=== PATIENT | female | born 1955 | race Caucasian/White ===

== ENCOUNTER → 2017-06-08 | Outpatient (CLI) | payer OTHER ==
--- NOTE | 2017-06-08 13:01 | REPMRS ---
Patient History The patient states she had a clinical breast exam in 06/07 Patient is postmenopausal and has history of melanoma age 59. No known family history of cancer. Digital Woman Screen Mammo: June 08, 2017 - Exam #: [id number] Bilateral CC and MLO view(s) were taken. Technologist: Cayla Flores, Technologist Prior study comparison: June 13, 2016, digital woman screen mammo performed at [facility]. June 11, 2015, digital woman screen mammo performed at [facility]. June 10, 2014, digital woman screen mammo performed at [facility]. FINDINGS: There are scattered fibroglandular densities. There has been no change in the appearance of the mammogram from the prior studies. There is a mild amount of scattered fibroglandular density which is fairly symmetric. There is no interval development of dominant mass, architectural distortion, or clustered microcalcification suggestive of malignancy. ASSESSMENT: BI-RADS/ACR category 1 mammogram. Negative. Recommendation Routine screening mammogram in 1 year (for women over age 40). This mammogram was interpreted with the aid of an FDA-approved computer-aided dectection system. Electronically Signed By: Sen Multani MD 06/08/17 7009
== END ==
LOC: M WHC 10:41
PROVIDERS: ATTEND Nurse Practitioner Women's Health
DX: Z12.31 Encounter for screening mammogram for malignant neoplasm of breast (principal)

== ENCOUNTER → 2017-06-08 | Outpatient (REF) | payer OTHER | LOC: M SFHCWAGY 10:57 | PROVIDERS: ATTEND Nurse Practitioner Women's Health | DX: Z12.4 Encounter for screening for malignant neoplasm of cervix (principal) ==

== ENCOUNTER → 2019-03-18 | Outpatient (CLI) | payer OTHER ==
--- NOTE | 2019-03-18 12:14 | REPMRS ---
Patient History The patient states she had a clinical breast exam in 02/2019. Patient is postmenopausal and has history of melanoma skin cancer at age 59. No known family history of cancer. No Hormone Replacement Therapy 3D TOMOSYNTHESIS WAS PERFORMED. Digital Woman Screen Mammo: March 18, 2019 - Exam #: [id number] Bilateral CC and MLO view(s) were taken. Technologist: Leidy Weathers, Technologist Prior study comparison: June 08, 2017, digital woman screen mammo performed at [facility]. June 13, 2016, digital woman screen mammo performed at [facility]. FINDINGS: The breast tissue is heterogeneously dense. This may lower the sensitivity of mammography. There has been no change in the appearance of the mammogram from the prior studies. There is a moderate amount of residual fibroglandular tissue which is fairly symmetric. There is no interval development of dominant mass, areas of architectural distortion, or clustered microcalcification typical of malignancy. Assessment: BI-RADS/ACR category 1 mammogram. Negative Mammogram. Recommendation Routine screening mammogram in 1 year (for women over age 40). This mammogram was interpreted with the aid of an FDA-approved computer-aided dectection system. Electronically Signed By: Jignesh Guzman MD 03/18/19 6783
== END ==
LOC: M WHC 10:49
PROVIDERS: ATTEND Nurse Practitioner Women's Health
DX: Z12.31 Encounter for screening mammogram for malignant neoplasm of breast (principal); Z78.0 Asymptomatic menopausal state

== ENCOUNTER → 2020-04-27 | Outpatient (REF) | payer BC | LOC: M SFHCWAGY 15:03 | PROVIDERS: ATTEND Nurse Practitioner Women's Health | DX: Z12.4 Encounter for screening for malignant neoplasm of cervix (principal); N95.2 Postmenopausal atrophic vaginitis | CPT/HCPCS: 87624; G0123 ==

== ENCOUNTER → 2020-04-27 | Outpatient (CLI) | payer BC ==
--- NOTE | 2020-04-27 13:02 | REPMRS ---
Patient History The patient states she had a clinical breast exam in April 2020. No known family history of cancer. No Hormone Replacement Therapy 3D TOMOSYNTHESIS WAS PERFORMED. [facility] lifetime risk for breast cancer is 6.6%. RUPALI Fuchs. Digital Woman Screen Mammo: April 27, 2020 - Exam #: [id number] Bilateral CC and MLO view(s) were taken. Technologist: Shirley Guerrero, Technologist Prior study comparison: March 18, 2019, bilateral digital woman screen mammo performed at [facility]. June 08, 2017, digital woman screen mammo performed at [facility]. FINDINGS: The breast tissue is heterogeneously dense. This may lower the sensitivity of mammography. There has been no change in the appearance of the mammogram from the prior studies. There is a moderate amount of residual fibroglandular tissue which is fairly symmetric. There is no interval development of dominant mass, areas of architectural distortion, or clustered microcalcification typical of malignancy. Assessment: BI-RADS/ACR category 1 mammogram. Negative Mammogram. Recommendation Routine screening mammogram in 1 year (for women over age 40). This mammogram was interpreted with the aid of an FDA-approved computer-aided dectection system. Electronically Signed By: Jignesh Guzman MD 04/27/20 2830
== END ==
LOC: M WHC 10:52
PROVIDERS: ATTEND Nurse Practitioner Women's Health
DX: Z12.31 Encounter for screening mammogram for malignant neoplasm of breast (principal)

== ENCOUNTER → 2020-08-10 | Outpatient (CLI) | payer BC ==
[~2020-08-10] MED LIST: E-Z-GAS II EFFERVESCENT PACKET (SODIUM BICARB./CITRIC ACID/SIMETHICONE) As Ordered ONE; E-Z-HD 98% w/w 340GM SUSP BTL As Ordered ONE; E-Z-PAQUE 96% w/w SUSP 176GM BTL As Ordered ONE
--- NOTE | 2020-08-10 17:24 | REP ---
INDICATION: GERD COMPARISON: None TECHNIQUE: This procedure was performed by Erma Dean [facility], under the direct supervision of Dr. Guzman. Images were reviewed with Dr. Guzman prior to dictation. Liquid barium and gas producing crystals were given in the erect position, as well as liquid barium in the prone oblique position in order to perform a double contrast upper GI examination. FINDINGS: The line rider PA chest x-ray shows a left hilar mass. A CT of the chest with IV contrast is recommended. The line rider film of the patient's abdomen demonstrates no organomegaly or pathological masses. The intestinal gas pattern is unremarkable. There are surgical clips in the right lower quadrant. The oral and pharyngeal stages of deglutition were unremarkable. And incidental finding of an anterior osteophyte of the C6/7 vertebral bodies, indenting the posterior aspect of the esophagus. Esophageal transport is prompt and efficient and there is no evidence of esophagitis, stricture, or mucosal ring. There is no evidence of a hiatal hernia. Gastroesophageal reflux was visualized to the level of the jeevan. The stomach messer are normally outlined. The rugal folds appear thickened within the body of the stomach, possibly due to gastritis.. There is no neoplasm, or ulcerative disease. The duodenal messer are normally outlined. The mucosal folds are smooth and regular. There is no duodenitis, peptic ulcer disease or neoplasm. The visualized portion of the proximal small bowel appears normal in course and caliber. IMPRESSION: 1. Incidental finding of a left hilar mass, CT of the chest with IV contrast is strongly recommended. 2. Gastroesophageal reflux to the level of the jeevan. 3. Thickened rugal folds within the body of the stomach, possibly due to gastritis. 0.4 minutes of fluoroscopy time was utilized for this procedure. Some fluoroscopic images are performed with last image hold technology. These images require no additional radiation. <Electronically signed by Jingesh Guzman > 08/10/20 9828
== END ==
LOC: M RAD 08:52
PROVIDERS: ATTEND Internal Medicine
DX: K21.00 Gastro-esophageal reflux disease with esophagitis, without bleeding (principal)

== ENCOUNTER → 2020-09-21 | Outpatient (CLI) | payer BC ==
--- NOTE | 2020-09-23 08:19 | REP ---
INDICATION: DIAGNOSING SOLITARY PULMONARY NODULE R91.1. COMPARISON: Comparison is made with CT study of the chest from September 10, 2020 done ago in our hospital. Comparison chest x-ray from upper GI series August 10, 2020.. TECHNIQUE: Forty-six minutes following the intravenous injection of a 8.50 mCi dose of F-18 FDG, three-dimensional PET scintigraphy is acquired from the skull base to the proximal thighs. Triplanar noncontrast CT scanning is acquired through the same anatomic range for attenuation correction, and image registration with scan parameters optimized to minimize radiation exposure to the patient. PET scintigraphy and CT datasets were fused and displayed on a workstation with multiplanar and projection display capability. FINDINGS: Incidental findings include cholelithiasis and a small air-containing right tracheal diverticulum at the thoracic inlet. This is a normal variant. The head and neck soft tissues are unremarkable. The recently identified large left hilar mass lesion is markedly hypermetabolic. Maximum standard uptake value within it is 18.97. Lesion measures up to 5.8 cm in greatest anteroposterior dimension. There is a contiguous somewhat linear pattern of increased uptake and soft tissue density extending into the perihilar region of the left upper lobe suggesting some endobronchial or peribronchial spread. There is certainly mass effect and attenuation of the upper lobe bronchus. There is hypermetabolic nodularity in the left upper lobe with multiple nodular opacities. Maximum standard uptake value in these ranges from 3.0 to 7.9. There is low-level non hypermetabolic parenchymal uptake in the lingular segment of the left upper lobe near the lung base and patchy areas of alveolar density and interstitial thickening elsewhere in the left upper lobe. This pattern raises the question of early lymphangitc spread. There is also very subtle nodular thickening of the major fissure on the left. These changes correlate with recent CT study. No pleural effusion is seen. No hypermetabolic pleural uptake is appreciated. In the abdomen and pelvis, normal hepatic, splenic, gastrointestinal FDG accumulation is seen. No evidence of adrenal mass or abnormal adrenal activity on scintigraphy. No abnormal hypermetabolic uptake in the abdomen or pelvis. IMPRESSION: The the large left hilar mass is markedly hypermetabolic and there are hypermetabolic left upper lobe nodules. There is suspicion of lymphangitic spread in the left upper lobe and some fine pleural nodularity along the major fissure on the left is seen on accompanying CT. Cholelithiasis. <Electronically signed by Sen Multani > 09/23/20 2729
== END ==
LOC: M PLARAD 12:17
PROVIDERS: ATTEND Internal Medicine
DX: R91.1 Solitary pulmonary nodule (principal)
CPT/HCPCS: 78815; A9552

== ENCOUNTER → 2020-09-22 | Outpatient (REF) | payer BC ==
[2020-09-22 17:49] LABS: PLATELET COUNT, AUTOMATED 403 10^3/uL (150-450)
[2020-09-22 18:07] LABS: INR 0.99; PROTHROMBIN TIME 13.3 SECONDS (12.5-14.3)
[2020-09-22 18:08] LABS: PARTIAL THROMBOPLASTIN TIME 31.1 SECONDS (24.2-38.5)
== END ==
LOC: M LAB REF 16:43
PROVIDERS: ATTEND Internal Medicine Pulmonary Disease
DX: R91.8 Other nonspecific abnormal finding of lung field (principal)

== ENCOUNTER → 2020-10-01 | Outpatient (CLI) | payer BC ==
[~2020-10-01] MED LIST changes: +BUPR150T5 PO; +CITA10TA5 PO; +DIAZ5TAB PO; -E-Z-GAS II EFFERVESCENT PACKET (SODIUM BICARB./CITRIC ACID/SIMETHICONE) As Ordered ONE; -E-Z-HD 98% w/w 340GM SUSP BTL As Ordered ONE; -E-Z-PAQUE 96% w/w SUSP 176GM BTL As Ordered ONE; +LEVO50TA5 PO; +OMEP-218 PO; +RABE1TAB PO
== END ==
LOC: M LABSMTC 13:36
PROVIDERS: ATTEND Anesthesiology
DX: Z01.812 Encounter for preprocedural laboratory examination (principal); Z20.828 Contact with and (suspected) exposure to other viral communicable diseases

== ENCOUNTER 2020-10-06 06:11 | Day surgery (SDC) | payer BC ==
[~2020-10-06] VITALS: Ht 172.7 cm; Wt 67.6 kg
[~2020-10-06 06:11] MED LIST changes: +LIDOCAINE 1% MDV 20ML VIAL SQ PRN
[2020-10-06] MEDS ORDERED: LIDOCAINE 4% INJ 5ML AMP INH ONE (07:00)
[2020-10-06] MEDS ORDERED: LR 1,000 ML IV ONE (07:00)
[2020-10-06] MEDS ORDERED: ALBUTEROL SULFATE 2.5 MG/0.5 ML INH NEB SOLN INH ONE (07:00)
[2020-10-06] MEDS ORDERED: ONDANSETRON 4MG/2ML VIAL As Ordered ONE (07:17)
[2020-10-06] MEDS ORDERED: LIDOCAINE 2% 100MG/5ML SDV (FOR ANES.) As Ordered ONE (07:17)
[2020-10-06] MEDS ORDERED: fentaNYL 100 MCG/2 ML INJECTION (J3010) As Ordered ONE (07:17)
[2020-10-06] MEDS ORDERED: propofoL 200 MG/20 ML VIAL As Ordered ONE (07:17)
[2020-10-06] MEDS ORDERED: SUGAMMADEX SODIUM 500 MG/5 ML VIAL (BRIDION) As Ordered ONE (07:17)
[2020-10-06] MEDS ORDERED: dexameTHASONE 4 MG/ML 1ML VIAL (J1100 PER 1MG) As Ordered ONE (07:17)
[2020-10-06] MEDS ORDERED: MIDAZOLAM INJ 2MG/2ML VIAL (J2250 PER 1MG) As Ordered ONE (07:17)
[2020-10-06] MEDS ORDERED: ROCURONIUM BROMIDE 50 MG/5 ML VIAL As Ordered ONE (07:17)
[2020-10-06] MEDS ORDERED: CETACAINE SPRAY 5GM As Ordered ONE (07:19)
[2020-10-06] MEDS ORDERED: LIDOCAINE 1% SDV 30ML VIAL As Ordered ONE (07:19)
[2020-10-06] MEDS ORDERED: THROMBIN SOLN 5,000 UNITS VIAL As Ordered ONE (07:19)
[2020-10-06] MEDS ORDERED: EPINEPHrine 1MG/10ML SYRINGE 1.5IN As Ordered ONE (07:19)
[2020-10-06] MEDS ORDERED: LIDOCAINE VISCOUS 2% SOLN 15ML UDC As Ordered ONE (07:20)
--- NOTE | 2020-10-06 09:11 | RO ---
OPERATIVE NOTE DATE OF OPERATION: 10/06/2020 PREOPERATIVE DIAGNOSIS: Left upper lobe mass. POSTOPERATIVE DIAGNOSIS: Left upper lobe mass. PROCEDURE: Fiberoptic bronchoscopy with wash brush biopsies photos with the assistance of fluoroscopy and endobronchial ultrasound. SURGEON: Wilfred Blackburn M.D. ANESTHESIA: General. OPERATIVE FINDINGS: 1. Endotracheal tube in good position. 2. Extrinsic compression left upper lobe. 3. Mild changes of chronic bronchitis diffusely. DESCRIPTION OF PROCEDURE: After the patient was identified and the above anesthesia given, the fiberoptic bronchoscope was easily passed via the existing #8.5 endotracheal tube. It was found to be in good position. The right lung was entered first. All segments and subsegments of the upper, middle, and lower lobe were easily identified and widely patent. Some mild changes of chronic bronchitis were noted. The left lung was then entered. Left mainstem widely patent. Left upper lobe showed diffuse extrinsic compression and submucosal infiltration. The left lower lobe and superior segment easily identified and widely patent. Some changes of chronic bronchitis were noted. Biopsies were taken of the left upper lobe mucosa somewhat deeply. Examination by the almond blancher did not demonstrate any malignancy. Fine needle aspiration using endobronchial ultrasound guidance was then performed. Even with deeper specimens, only inflammatory cells were identified. Brushes were then taken of the left upper lobe distally. The scope was then withdrawn and procedure terminated. Fluoroscopic examination immediately postprocedure showed no obvious pneumothorax. Care was then turned over to anesthesia for extubation. Oxygen saturation remained 95% or greater throughout the exam. No immediate complications identified at this point. Final specimens pending at the time of this dictation.
[2020-10-06] MEDS ORDERED: LR 1,000 ML IV SCH (09:15)
[2020-10-06] MEDS ORDERED: ONDANSETRON 4MG/2ML VIAL IV PRN (09:15)
[2020-10-06] MEDS ORDERED: fentaNYL 100 MCG/2 ML INJECTION (J3010) IV PRN (09:15)
--- NOTE | 2020-10-06 09:15 | REP ---
INDICATION: LEFT UPPER LOBE ABNORMALITY. COMPARISON: Comparison PET-CT September 21, 2020.. TECHNIQUE: Single fluoroscopically obtained spot radiograph of the chest. 0.09 seconds of fluoroscopy time is reported. FINDINGS: A single last image hold fluoroscopically obtained spot radiographs document bronchoscope implements position. IMPRESSION: Procedural imaging. <Electronically signed by Sen Multani > 10/06/20 0974
[2020-10-06 10:00] VITALS: BP 109/54
== END 2020-10-06 10:09 | disposition home or self-care (01) ==
LOC: M SDC 06:11
PROVIDERS: ATTEND Internal Medicine Pulmonary Disease
DX: R91.8 Other nonspecific abnormal finding of lung field (principal); J42 Unspecified chronic bronchitis; E03.9 Hypothyroidism, unspecified; K21.9 Gastro-esophageal reflux disease without esophagitis; F32.9 Major depressive disorder, single episode, unspecified; F41.9 Anxiety disorder, unspecified; Z72.0 Tobacco use; Z78.0 Asymptomatic menopausal state; Z79.890 Hormone replacement therapy; Z85.820 Personal history of malignant melanoma of skin; Z92.3 Personal history of irradiation
CPT/HCPCS: 31623; 31625; 31652; 76000; 88104; 88173; 88305; J1100; J2250; J2405; J3010

== ENCOUNTER → 2020-10-25 | Outpatient (CLI) | payer BC ==
[~2020-10-25] MED LIST changes: +ALEV220T22 PO; +GUAISYP9 PO; +LIDOCAINE 1% MDV 20ML VIAL As Ordered ONE; -LIDOCAINE 1% MDV 20ML VIAL SQ PRN; -RABE1TAB PO; +RABE1TAB4 PO; +SODIUM BICARBONATE 8.4% INJ 50MEQ 50 ML VIAL As Ordered ONE
[2020-10-25 12:02] VITALS: BP 140/63
--- NOTE | 2020-10-25 12:03 | REP ---
INDICATION: POST LEFT LUNG BIOPSY, PA EXPIRATION, 1 VIEW. COMPARISON: None. TECHNIQUE: Single expiratory view of the chest is performed. FINDINGS: No pneumothorax is visualized status post left lung biopsy. Left hilar mass is again noted. Heart is normal in size. IMPRESSION: No pneumothorax status post left lung biopsy. <Electronically signed by Jignesh Guzman > 10/25/20 1200
--- NOTE | 2020-10-25 12:46 | REP ---
INDICATION: OTHER NONSPECIFIED ABNORMAL FINDING OF LUNG. COMPARISON: None. TECHNIQUE: The procedure is performed by DOMINGA Bone, under the direct supervision of Dr. Guzman. The risks and benefits of the procedure were explained to the patient and informed consent was obtained both orally and written. Directly prior to the start of the procedure, a formal timeout was done in the exam room. The left upper lobe lung mass was localized using CT guidance. Skin was prepped and draped in the usual sterile fashion. Four ml of buffered lidocaine was used as a local anesthetic. FINDINGS: Using CT guidance a 19/20 gauge coaxial needle biopsy system was inserted and advanced into the nodule. Eight core biopsy samples were obtained and sent to the lab. CT images obtained directly after the biopsy show no evidence of pneumothorax. After the appropriate amount of monitored convalescence the patient was discharged from the department. IMPRESSION: CT-guided biopsy of a left upper lobe lung mass. <Electronically signed by Erma Dean > 10/25/20 1222 <Electronically signed by Jignesh Guzman > 10/25/20 1248
== END ==
LOC: M IRPRO 08:02
PROVIDERS: ATTEND Internal Medicine Pulmonary Disease
DX: C78.02 Secondary malignant neoplasm of left lung (principal); R91.8 Other nonspecific abnormal finding of lung field

== ENCOUNTER → 2020-11-11 | Outpatient (CLI) | payer BC ==
[~2020-11-11] MED LIST changes: -LIDOCAINE 1% MDV 20ML VIAL As Ordered ONE; -SODIUM BICARBONATE 8.4% INJ 50MEQ 50 ML VIAL As Ordered ONE
--- NOTE | 2020-11-11 15:21 | RADONC.CN ---
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 Diagnosis/Treatment History Oncologic History 2014: Desmoplastic melanoma anterior chin, per patient 3-4 cm in size, deep invading, s/p WLE and SLNB with Benito Servin @ [facility]. SLNB was negative per patient. She received adjuvant radiation to the neck (she states she had BL skin reaction on neck) @ [place]. 2020: In response to what she thought was GERD exacerbation on 08/10/20 she had a UGI and esophagram which incidentally showed a left lung mass. This was followed by CT on 09/15/20 which showed a left suprahilar mass ~6 cm and a dditional nodules peripherally in the JANICE suggestive of metastatic foci. PET-CT on 09/21/20 showed avidity in the left hilar mass and nodules without evidence of disease outside of the chest. She underwent CT biopsy of the left lung mass which returned desmoplastic melanoma, which when compared to the 2014 specimen stained identically. BRAF status is pending. Interval History Aleisha is here with her . She expressed shock at the diagnosis of metastatic melanoma. She otherwise feels well. No cough or hemoptysis, no SOB or CANELA. Her GERD symptoms are her only complaint. No fevers or chills, no weight loss or poor appetite. No neurologic complaints or REHMAN. Past Medical History: Anxiety/depression GERD Hypothyroidism Past Surgical History: SUSIE rangel 2013 D&C Family History: Sister breast cancer Social History: ~20 pack year former smoker Does not drink alcohol Allergies / Meds Allergies: Coded Allergies: No Known Allergies (Unverified , 10/04/20) Home Meds Reported Medications Codeine Phosphate/Guaifenesin (Guaiatussin AC Liquid) 118 Ml Liquid, 10 ML PO Q6HP PRN for COUGH MDD 40ml 11/10/20 Naproxen Sodium (Aleve) 220 Mg Tablet, 220 MG PO BID PRN for PAIN, TAB 10/25/20 Levothyroxine Sodium (LEVOTHYROXINE SODIUM) 50 Mcg Tablet, 50 MCG PO DAILY 10/04/20 Rabeprazole Sodium (Rabeprazole Sodium) 20 Mg Tablet.dr, 20 MG PO BID 10/04/20 Diazepam (Diazepam) 5 Mg Tablet, 5 MG PO BID 10/04/20 Citalopram Hydrobromide (Citalopram HBr) 10 Mg Tablet, 10 MG PO DAILY 10/04/20 Review of Systems Constitutional: Denies: Chills, Fever, Night Sweats Eyes: Denies: Pain, Vision change HEENT: Denies: Head Aches, Dysphagia, Sore Throat Skin: Denies: Rash, Lesions, Bruising Pulmonary: Denies: Dyspnea, Cough Cardiovascular: Denies: Chest Pain, Palpitations, Edema Gastrointestinal: Denies: Nausea, Vomiting, Abdominal Pain, Diarrhea Genitourinary: Denies: Dysuria, Frequency, Incontinence Hematologic: Denies: Bruising, Petecchia, Enlarged Lymph Nodes Musculoskeletal: Denies: Neck pain, Back pain Neurological: Denies: Weakness, Numbness, Incoordination Psych: Denies: Mood Normal, Anxiety, Depression, Memory Issues, Thoughts of Self Harm, Anger, Thoughts of harming Other, Other Psych Vital Signs Wt 144 lbs T 97.9 P 85 RR 16 BP 145/80 O2 98% Pain 0 Fatigue 0 General Exam: Positive: Alert, Cooperative, No Acute Distress Eye Exam: Positive: PERRLA, EOMI ENT EXAM: Positive: Mucous membr. moist/pink, Pharynx Normal Neck Exam: Negative: Thyromegaly, Lymphadenopathy Chest Exam: Positive: Normal air movement; Negative: Rales, Rhonchi, Wheezing Heart Exam: Positive: Rate Normal, Regular Rhythm Abdomen Exam: Negative: Normal bowel sounds, BS Hyperactive, BS Hypoactive, Soft, Tenderness, Hepatospenomegaly, Mass, Hernia, Other Extremity Exam: Negative: Edema, Tenderness Skin Exam: Positive: Nl turgor and temperature; Negative: Rash Neuro Exam: Positive: Normal Gait, Normal Speech, Cranial Nerves 3-12 NL Psych Exam: Positive: Mental status NL, Mood NL, Memory Intact Diagnostic and Laboratory Diagnostic Review Radiologic images, relevant labs and pathology reports were personally reviewed and discussed with Ms. Rahat Dickey. Assessment and Plan Impression Ms. 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 Stage Melanoma stage IV [id number] Performance Status ECOG 0 Plan We had an extensive discussion with Ms. Rahat Dickey regarding the diagnosis at hand and available therapeutic options. I will attempt to obtain the records from her treatment @ [facility] and [facility] for completeness sake. She has late recurrence of her original melanoma confined to the left chest with a large left suprahilar mass and several small peripheral JANICE nodules. Dr. Somers weighed in at tumor board and does not this this could be resected safely. Her BRAF status and staging MRI head are the only items left to stage. She is having MRI head tomorrow and I stated I would call her with the results. She is seeing Dr. Negro next week. I explained that systemic therapy, either immunotherapy or combination BRAF targeted therapy would be the best initial course of treatment for this. If she has a favorable but incomplete response to systemic therapy in the chest then I would consider adding consolidative RT or SBRT to augment local control of this limited disease burden. The alternative of surgery for local control could also be broached, however the advantage of RT is that there would be no lapse in systemic therapy, which ultimately is life-lengthening in this case. If she has small/subclinical brain metastases on MRI, then I would offer upfront SRS if she is BRAF negative. If she has a BRAF mutation, then she could receive SRS or trial of BRAF/MEK inhibition to treat these initially. Will discuss with her in either event. I will ensure she has a 3 month follow up with me on the schedule, if there is indication to move forward with SRS we will expedite this. I also told her she is welcome to reach out any time with questions or concerns and I can see her sooner if needed. After discussing the risks, benefits and alternatives to radiation therapy, Ms. Rahat Dickey was amenable to pursuing medical oncology consultation and systemic therapy first. All questions were answered to the patient's satisfaction We instructed the patient that if there were any questions,concerns or changes in clinical status in the interim to contact us. Recommendations Medical oncology consult with Dr. Negro as scheduled Systemic therapy upfront Consolidative RT/SBRT to chest can be considered if <CR I will follow up MRI head and call with results Follow up in 3 months, or sooner if needed Will obtain old records from [facility] and MOISES Ruth MD Nov 11, 2020 15:21
--- NOTE | 2020-11-12 16:34 | RADENCPD ---
Date/Time of Encounter Date of Encounter: Nov 12, 2020 Time of Encounter: 16:33 Encounter Reviewed MRI, per my interpretation no evidence of metastatic lesions. I conveyed this to patient by phone. Patient to see Dr. Negro next week for systemic therapy consideration. I will see patient in 3 months as planned. MOISES BLAS MD Nov 12, 2020 16:34
== END ==
LOC: M ONCR 12:34
PROVIDERS: ATTEND General Practice
DX: C78.02 Secondary malignant neoplasm of left lung (principal)

== ENCOUNTER → 2020-11-12 | Outpatient (CLI) | payer BC ==
--- NOTE | 2020-11-12 16:35 | REP ---
INDICATION: MALIGNANT NEOPLASM BRONCHUS/LUNG. COMPARISON: No comparison brain imaging.. TECHNIQUE: Axial and sagittal imaging planes are utilized for T1 and T2-weighted scans. Sequences include spin-echo, fast spin echo, FLAIR, and diffusion weighted sequences. Gadolinium enhancement dose is 13 mL of intravenous ProHance. Postcontrast T1 weighted scans are acquired in all 3 planes. FINDINGS: No bony calvarial lesion is seen. Craniocervical junction and upper cervical cord are normal in appearance. There is no MR evidence of significant paranasal sinus disease. No intraorbital abnormality is seen. The lateral, third, and fourth ventricles are normal in size and position. Guzman-white differentiation pattern is intact above and below the tentorium. There is no evidence of intracranial hemorrhage. No mass, infarction, extra-axial fluid collection or midline shift is seen. No abnormal white matter lesion is seen. There are some dilated perivascular spaces noted at the inferior aspect the basal ganglia bilaterally. This is normal variant. There is no evidence of intracranial mass lesion. Postcontrast imaging shows enhancement in normal vasculature. No abnormal intracranial contrast enhancement is seen. There is no evidence to suggest intracranial metastatic disease. IMPRESSION: Negative brain MRI study without and with IV gadolinium. No evidence to suggest intracranial metastatic disease.. <Electronically signed by Sen Multani > 11/12/20 0973
== END ==
LOC: M PLARAD 13:32
PROVIDERS: ATTEND Internal Medicine Pulmonary Disease
DX: C34.90 Malignant neoplasm of unspecified part of unspecified bronchus or lung (principal)

== ENCOUNTER → 2021-03-01 | Outpatient (CLI) | payer BC ==
[~2021-03-01] MED LIST changes: +COVI2.5V IM; +GASTROGRAFIN SOLUTION 30ML (Q9963) As Ordered ONE; +LEXA1TAB2 PO; +TRIA1CR80 TOP
--- NOTE | 2021-03-02 04:58 | REP ---
INDICATION: MELANOMA COMPARISON: None TECHNIQUE: Axial noncontrast images from the lung bases to the pubic symphysis with coronal and sagittal reformations. Oral contrast administered prior to imaging. This CT examination was performed using the following dose reduction techniques: Automated exposure control, adjustment of mA and/or kv according to the patient's size, and use of iterative reconstruction technique. FINDINGS: Liver, spleen, pancreas, bilateral adrenal glands and kidneys are normal. Cholelithiasis noted without acute cholecystitis. The enteric system is unremarkable and without obstruction or acute inflammatory process. Normal terminal ileum and appendix identified in the right lower quadrant. Pelvis demonstrates normal bladder and calcifications within the uterus suggesting myomatous changes. No ascites. No free air. No adenopathy. No focal inflammatory stranding. Atherosclerotic changes to the abdominal aorta without aneurysm noted. Musculoskeletal structures are intact and without acute osseous abnormality. IMPRESSION: Cholelithiasis. Suspected myomatous changes to the uterus. No acute abdominopelvic pathology appreciated. No evidence for metastatic disease, ascites, or adenopathy by noncontrast evaluation. <Electronically signed by Carlos Scott > 03/02/21 0459
--- NOTE | 2021-03-02 05:11 | REP ---
INDICATION: MELANOMA COMPARISON: 09/10/2020 TECHNIQUE: Axial noncontrast images from the thoracic inlet to the upper abdomen with coronal and sagittal reformations. This CT examination was performed using the following dose reduction techniques: Automated exposure control, adjustment of mA and/or kv according to the patient's size, and use of iterative reconstruction technique. FINDINGS: The previously noted large metastatic nodules primarily identified in the left upper lobe and large left hilar mass/conglomerate adenopathy has considerably improved as compared with prior examination and the current examination now demonstrates few scattered ill-defined areas of opacity at the site of previous large metastatic foci and significantly decreased left hilar mass/adenopathy. The left lower lobe and right hemithorax appear relatively clear and without obvious metastatic foci. Diffuse mild chronic interstitial changes are noted and similar to prior examination. No effusion. No pneumothorax. No new consolidation. Tracheobronchial tree is patent. The mediastinum demonstrates stable atherosclerotic changes to the thoracic aorta and coronary arteries without aortic aneurysm or cardiomegaly. No pericardial effusion. Musculoskeletal structures are intact and without acute osseous abnormality. IMPRESSION: Previously noted left upper lobe metastatic lesions and large left hilar mass/adenopathy has considerably improved. No new metastatic foci are identified. No effusion. No consolidation. <Electronically signed by Carlos Scott > 03/02/21 [id number]
== END ==
LOC: M RAD 11:30
PROVIDERS: ATTEND Internal Medicine Medical Oncology
DX: C78.02 Secondary malignant neoplasm of left lung (principal)
CPT/HCPCS: 71250; 74176; Q9963

== ENCOUNTER → 2021-06-21 | Outpatient (CLI) | payer BC ==
[~2021-06-21] MED LIST changes: +CLON1TAB8 PO; +GABA-1171 PO; +HYDR-3363 PO; +NEUR300C PO; +SYNT75TA PO
--- NOTE | 2021-06-22 09:36 | REP ---
INDICATION: MET MYELOMA COMPARISON: 03/01/2021 TECHNIQUE: Axial noncontrast images from the thoracic inlet to the upper abdomen with coronal and sagittal reformations. This CT examination was performed using the following dose reduction techniques: Automated exposure control, adjustment of mA and/or kv according to the patient's size, and use of iterative reconstruction technique. FINDINGS: Ill-defined spiculated nodular opacities in the left upper lobe are again noted but appear slightly improved. Left hilar mass/adenopathy has decreased from prior examination, and although exact evaluation is difficult due to the lack of contrast, lesion previously measured 3.5 cm maximal AP diameter and currently measures 2.1 cm AP diameter at the same level. No new area of consolidation, obvious adenopathy, mass or effusion. Tracheobronchial tree is patent. Stable atherosclerotic changes to the aorta and coronary arteries noted without aortic aneurysm or cardiomegaly. No pericardial effusion. Limited upper abdomen demonstrates normal bilateral adrenal glands and cholelithiasis. Surrounding musculoskeletal structures intact and without acute osseous abnormality. IMPRESSION: 1. Improved appearance to the ill-defined left upper lobe lesions and left hilar mass/adenopathy. 2. No new acute mediastinal or pleuroparenchymal process appreciated. <Electronically signed by Carlos Scott > 06/22/21 [id number]
--- NOTE | 2021-06-22 09:44 | REP ---
INDICATION: MET MYELOMA COMPARISON: 03/01/2021 TECHNIQUE: Axial noncontrast images from the lung bases to the pubic symphysis with coronal and sagittal reformations. This CT examination was performed using the following dose reduction techniques: Automated exposure control, adjustment of mA and/or kv according to the patient's size, and use of iterative reconstruction technique. FINDINGS: Lung bases are clear. Visualized heart and pericardium normal. Liver, spleen, pancreas, bilateral adrenal glands and left kidney are normal. Cholelithiasis again noted. Right kidney includes 1 mm nonobstructing nephrolith. The enteric system is unremarkable and without obstruction or acute inflammatory process. Normal terminal ileum and evidence for prior appendectomy in the right lower quadrant.. Pelvis demonstrates normal bladder and partially calcified myomatous changes to the uterus.. No ascites. No free air. No adenopathy. No focal inflammatory stranding. Abdominal aorta without aneurysm. Musculoskeletal structures are intact and without acute osseous abnormality. IMPRESSION: No acute abdominopelvic pathology appreciated. Cholelithiasis. 1 mm nonobstructing right renal calculus. Partially calcified myomatous changes to the uterus. <Electronically signed by Carlos Scott > 06/22/21 [id number]
== END ==
LOC: M RAD 10:57
PROVIDERS: ATTEND Internal Medicine Medical Oncology
DX: C43.9 Malignant melanoma of skin, unspecified (principal); R91.8 Other nonspecific abnormal finding of lung field; K80.20 Calculus of gallbladder without cholecystitis without obstruction; N20.0 Calculus of kidney
CPT/HCPCS: 71250; 74176; Q9963

== ENCOUNTER → 2021-09-12 | Outpatient (REF) | payer BC ==
[~2021-09-12] MED LIST changes: +GABA600T4 PO; -GASTROGRAFIN SOLUTION 30ML (Q9963) As Ordered ONE; +HYDR-3713 PO; +LEVO-88 PO; +LEVO100C PO; +OXYC-778 PO; +PREG100CA PO; +TRAZ-252 PO
[2021-09-12 18:15] LABS: APPEARANCE, URINE CLEAR (CLEAR); BACTERIA, URINE AUTO NEGATIVE (NEGATIVE); BILIRUBIN, URINE AUTO NEGATIVE (NEGATIVE); BLOOD, URINE BLOOD NEGATIVE (NEGATIVE); COLOR, URINE YELLOW (YELLOW); GLUCOSE, URINE (UA) AUTO NEGATIVE (NEGATIVE); KETONE, URINE AUTO NEGATIVE (NEGATIVE); LEUKOCYTE ESTERASE, URINE AUTO 1+ (NEGATIVE); MUCUS, URINE SMALL (NEGATIVE); NITRITE, URINE AUTO NEGATIVE (NEGATIVE); PROTEIN, URINE AUTO NEGATIVE (NEGATIVE); RBC, URINE AUTO 2 /HPF (0-3); SPECIFIC GRAVITY URINE AUTO 1.013 (1.002-1.035); SQUAMOUS EPITHELIAL CELL UR AU 0 /HPF (0-6); UROBILINOGEN, URINE AUTO 0.2 mg/dL (0.0-2.0); WBC, URINE AUTO 6 /HPF (0-3)
== END ==
LOC: M SMT 16:55
PROVIDERS: ATTEND Nurse Practitioner Women's Health
DX: R39.15 Urgency of urination (principal)

== ENCOUNTER → 2021-09-26 | Outpatient (REF) | payer BC ==
[2021-09-26 18:53] LABS: AMORPHOUS SEDIMENT SMALL (NEGATIVE); APPEARANCE, URINE CLOUDY (CLEAR); BACTERIA, URINE AUTO NEGATIVE (NEGATIVE); BILIRUBIN, URINE AUTO NEGATIVE (NEGATIVE); BLOOD, URINE BLOOD NEGATIVE (NEGATIVE); COLOR, URINE YELLOW (YELLOW); GLUCOSE, URINE (UA) AUTO NEGATIVE (NEGATIVE); KETONE, URINE AUTO NEGATIVE (NEGATIVE); LEUKOCYTE ESTERASE, URINE AUTO NEGATIVE (NEGATIVE); MUCUS, URINE SMALL (NEGATIVE); NITRITE, URINE AUTO NEGATIVE (NEGATIVE); PROTEIN, URINE AUTO NEGATIVE (NEGATIVE); RBC, URINE AUTO 1 /HPF (0-3); SPECIFIC GRAVITY URINE AUTO 1.017 (1.002-1.035); SQUAMOUS EPITHELIAL CELL UR AU 0 /HPF (0-6); WBC, URINE AUTO 0 /HPF (0-3)
== END ==
LOC: M SMT 17:26
PROVIDERS: ATTEND Urology
DX: R35.0 Frequency of micturition (principal)

== ENCOUNTER → 2021-09-28 | Outpatient (CLI) | payer BC ==
[~2021-09-28] MED LIST changes: +GASTROGRAFIN SOLUTION 30ML (Q9963) As Ordered ONE; +ISOVUE-370 76% 100ML VIAL As Ordered ONE
--- NOTE | 2021-09-29 06:36 | REP ---
INDICATION: MELANOMA COMPARISON: 06/21/2021, 03/01/2021, 09/10/2020 TECHNIQUE: Axial noncontrast images from the thoracic inlet to the upper abdomen with coronal and sagittal reformations. This CT examination was performed using the following dose reduction techniques: Automated exposure control, adjustment of mA and/or kv according to the patient's size, and use of iterative reconstruction technique. FINDINGS: Small ill-defined scattered areas of nodularity and suspected scarring in the left upper lobe are identified but appear overall improved when compared through multiple prior examinations. Small residual focus of soft tissue at the left suprahilar region has considerably decreased in size but continued active pathology cannot be excluded. Lung douglass are otherwise well aerated and no new areas of consolidation, nodule or mass are noted. No effusion. No pneumothorax. Tracheobronchial tree is patent. No obvious adenopathy based on noncontrast evaluation. Mediastinum again demonstrates atherosclerotic changes to the thoracic aorta and coronary arteries without aortic aneurysm or cardiomegaly. No pericardial effusion. Osseous structures are intact and without acute abnormality. IMPRESSION: 1. Small areas of presumed residual chronic scarring in the left upper lobe appear considerably improved and near completely resolved as compared with prior examinations. 2. Small residual focus of nodular soft tissue in the left suprahilar region cannot exclude continued small active area of malignancy. Consider continued short-term follow-up or PET-CT for confirmation. 3. No new acute mediastinal or pleuroparenchymal process appreciated. <Electronically signed by Carlos Scott > 09/29/21 0671
--- NOTE | 2021-09-29 06:45 | REP ---
INDICATION: MELANOMA COMPARISON: 06/21/2021, 03/01/2021 TECHNIQUE: Axial noncontrast images from the lung bases to the pubic symphysis with coronal and sagittal reformations. Oral contrast administered prior to imaging. This CT examination was performed using the following dose reduction techniques: Automated exposure control, adjustment of mA and/or kv according to the patient's size, and use of iterative reconstruction technique. FINDINGS: Lung bases are clear. Visualized heart and pericardium normal. Liver, spleen, pancreas, bilateral adrenal glands and kidneys are normal. Cholelithiasis again noted. The enteric system is unremarkable and without obstruction or obvious acute inflammatory process. Pelvis demonstrates normal bladder and myomatous changes to the uterus. No ascites. No free air. No adenopathy. No focal inflammatory stranding. Abdominal aorta without aneurysm. Musculoskeletal structures are intact and without acute osseous abnormality. IMPRESSION: No acute abdominopelvic pathology appreciated by noncontrast evaluation. No ascites. No obvious adenopathy. No focal inflammatory stranding. Cholelithiasis. <Electronically signed by Carlos Scott > 09/29/21 0641
== END ==
LOC: M RAD 11:17
PROVIDERS: ATTEND Internal Medicine Medical Oncology
DX: C43.9 Malignant melanoma of skin, unspecified (principal)
CPT/HCPCS: 71250; 74176; Q9963

== ENCOUNTER → 2022-02-16 | Outpatient (CLI) | payer BC ==
[~2022-02-16] MED LIST changes: +BUPR-71 PO; -BUPR150T5 PO; -CITA10TA5 PO; +CITA10TA7 PO; -GASTROGRAFIN SOLUTION 30ML (Q9963) As Ordered ONE; -ISOVUE-370 76% 100ML VIAL As Ordered ONE; +OMEP-173 PO; -OMEP-218 PO; +PRED20TA PO
== END ==
LOC: M RAD 11:29
PROVIDERS: ATTEND Internal Medicine Medical Oncology
DX: C43.9 Malignant melanoma of skin, unspecified (principal); I25.10 Atherosclerotic heart disease of native coronary artery without angina pectoris

== ENCOUNTER → 2022-03-02 | Outpatient (REF) | payer BC | LOC: M PLALAB 09:03 | PROVIDERS: ATTEND Advanced Practice Midwife | DX: Z53.9 Procedure and treatment not carried out, unspecified reason (principal) ==

== ENCOUNTER → 2022-03-03 | Outpatient (CLI) | payer BC | LOC: M WHC 13:15 | PROVIDERS: ATTEND Advanced Practice Midwife | DX: Z12.31 Encounter for screening mammogram for malignant neoplasm of breast (principal) ==

== ENCOUNTER → 2022-03-03 | Outpatient (REF) | payer BC | LOC: M SFHCWAGY 18:20 | PROVIDERS: ATTEND Advanced Practice Midwife | DX: Z12.4 Encounter for screening for malignant neoplasm of cervix (principal); N95.2 Postmenopausal atrophic vaginitis | CPT/HCPCS: 87624; G0123 ==

== ENCOUNTER → 2022-03-17 | Outpatient (REF) | payer BC ==
[2022-03-17 18:23] LABS: APPEARANCE, URINE CLEAR (CLEAR); BACTERIA, URINE AUTO NEGATIVE (NEGATIVE); BILIRUBIN, URINE AUTO NEGATIVE (NEGATIVE); BLOOD, URINE BLOOD NEGATIVE (NEGATIVE); COLOR, URINE YELLOW (YELLOW); GLUCOSE, URINE (UA) AUTO NEGATIVE (NEGATIVE); KETONE, URINE AUTO NEGATIVE (NEGATIVE); LEUKOCYTE ESTERASE, URINE AUTO NEGATIVE (NEGATIVE); MUCUS, URINE SMALL (NEGATIVE); NITRITE, URINE AUTO NEGATIVE (NEGATIVE); PROTEIN, URINE AUTO NEGATIVE (NEGATIVE); RBC, URINE AUTO 0 /HPF (0-3); SPECIFIC GRAVITY URINE AUTO 1.013 (1.002-1.035); SQUAMOUS EPITHELIAL CELL UR AU 1 /HPF (0-6); UROBILINOGEN, URINE AUTO 0.2 mg/dL (0.0-2.0); WBC, URINE AUTO 2 /HPF (0-3)
== END ==
LOC: M SMT 16:43
PROVIDERS: ATTEND Urology
DX: R35.0 Frequency of micturition (principal)

== ENCOUNTER → 2022-03-28 | Outpatient (CLI) | payer BC | LOC: M PLARAD 10:19 | PROVIDERS: ATTEND Internal Medicine Medical Oncology | DX: C43.39 Malignant melanoma of other parts of face (principal); C78.02 Secondary malignant neoplasm of left lung | CPT/HCPCS: 78816; A9552 ==

== ENCOUNTER → 2022-06-18 | Outpatient (CLI) | payer BC ==
[~2022-06-18] MED LIST changes: +KEYT1INJ IV; +LEVO100T5 PO; +MIRA3350 PO; +MYRB50TA PO; +OXYB5TAB10 PO
== END ==
LOC: M LABSMTC 11:41
PROVIDERS: ATTEND Anesthesiology
DX: Z01.812 Encounter for preprocedural laboratory examination (principal); Z11.52 Encounter for screening for COVID-19

== ENCOUNTER 2022-06-22 12:34 | Day surgery (SDC) | payer BC ==
[~2022-06-22] VITALS: Ht 170.2 cm; Wt 61.2 kg
[~2022-06-22 12:34] MED LIST changes: +NS 1,000 ML IV ONE
[2022-06-22] MEDS ORDERED: LIDOCAINE 2% 100MG/5ML SDV (FOR ANES.) As Ordered ONE (15:00)
[2022-06-22] MEDS ORDERED: propofoL 200 MG/20 ML VIAL As Ordered ONE (15:00)
[2022-06-22] MEDS ORDERED: GLYCOPYRROLATE INJ 0.2 MG/ML 2 ML VIAL As Ordered ONE (15:01)
[2022-06-22 15:55] VITALS: BP 121/61
== END 2022-06-22 16:10 | disposition home or self-care (01) ==
LOC: M OPP 12:34
PROVIDERS: ATTEND Surgery
DX: K59.00 Constipation, unspecified (principal); Q43.8 Other specified congenital malformations of intestine; C43.39 Malignant melanoma of other parts of face; E03.9 Hypothyroidism, unspecified; F32.9 Major depressive disorder, single episode, unspecified; F41.9 Anxiety disorder, unspecified; N32.81 Overactive bladder; Z85.118 Personal history of other malignant neoplasm of bronchus and lung; Z92.3 Personal history of irradiation; Z79.52 Long term (current) use of systemic steroids; Z79.891 Long term (current) use of opiate analgesic; Z79.899 Other long term (current) drug therapy; Z91.041 Radiographic dye allergy status

== ENCOUNTER → 2022-09-25 | Outpatient (CLI) | payer MEDICARE, BC ==
[~2022-09-25] MED LIST changes: +GASTROGRAFIN SOLUTION 30ML As Ordered ONE; -NS 1,000 ML IV ONE
== END ==
LOC: M RAD 10:51
PROVIDERS: ATTEND Internal Medicine Medical Oncology
DX: C43.9 Malignant melanoma of skin, unspecified (principal); R91.8 Other nonspecific abnormal finding of lung field; K80.20 Calculus of gallbladder without cholecystitis without obstruction
CPT/HCPCS: 71250; 74176; Q9963

== ENCOUNTER → 2023-04-30 | Outpatient (CLI) | payer MEDICARE, BC ==
[~2023-04-30] MED LIST changes: -GASTROGRAFIN SOLUTION 30ML As Ordered ONE; +TACR0.1O
== END ==
LOC: M PLARAD 13:18
PROVIDERS: ATTEND Internal Medicine Medical Oncology
DX: C43.59 Malignant melanoma of other part of trunk (principal)
CPT/HCPCS: 78816; A9552

== ENCOUNTER → 2023-08-22 | Outpatient (CLI) | payer MEDICARE, BC ==
[~2023-08-22] MED LIST changes: +FLUO20CA22 PO; +GASTROGRAFIN SOLUTION 30ML As Ordered ONE; +LEVO112T2 PO; -OXYB5TAB10 PO; +OXYB5TAB11 PO; -TACR0.1O; +TACR0.1O TOP
== END ==
LOC: M RAD 10:45
PROVIDERS: ATTEND Internal Medicine Medical Oncology
DX: C43.39 Malignant melanoma of other parts of face (principal); C78.02 Secondary malignant neoplasm of left lung; N20.0 Calculus of kidney; K80.20 Calculus of gallbladder without cholecystitis without obstruction
CPT/HCPCS: 71250; 74176; Q9963

== ENCOUNTER → 2024-03-10 | Outpatient (CLI) | payer MEDICARE, BC ==
[~2024-03-10] MED LIST changes: -GASTROGRAFIN SOLUTION 30ML As Ordered ONE; -OXYB5TAB11 PO; +OXYB5TAB14 PO
== END ==
LOC: M PLARAD 10:26
PROVIDERS: ATTEND Internal Medicine Medical Oncology
DX: C43.59 Malignant melanoma of other part of trunk (principal)
CPT/HCPCS: 78816; A9552

== ENCOUNTER → 2024-03-25 | Outpatient (CLI) | payer MEDICARE, BC ==
[~2024-03-25] MED LIST changes: +FLUO-365 PO; -FLUO20CA22 PO
== END ==
LOC: M WHC 14:24
PROVIDERS: ATTEND Advanced Practice Midwife
DX: Z12.31 Encounter for screening mammogram for malignant neoplasm of breast (principal)

== ENCOUNTER → 2024-03-25 | Outpatient (CLI) | payer MEDICARE, BC | LOC: M WHC 13:50 | PROVIDERS: ATTEND Advanced Practice Midwife | DX: Z12.31 Encounter for screening mammogram for malignant neoplasm of breast (principal); R92.323 Mammographic fibroglandular density, bilateral breasts ==

== ENCOUNTER → 2024-08-28 | Outpatient (CLI) | payer MEDICARE, BC ==
[~2024-08-28] MED LIST changes: +BENA25CA4 PO; +GABA-1490 PO; -GABA600T4 PO; +ISOVUE-370 76% 100ML VIAL As Ordered ONE; -KEYT1INJ IV; +PEMB100V2 IV; +PRED50TA PO
== END ==
LOC: M RAD 13:08
PROVIDERS: ATTEND Internal Medicine Medical Oncology
DX: D03.9 Melanoma in situ, unspecified (principal)
CPT/HCPCS: 71260; 74177; Q9967

== ENCOUNTER → 2025-02-23 | Outpatient (CLI) | payer MEDICARE, BC ==
[~2025-02-23] MED LIST changes: -ISOVUE-370 76% 100ML VIAL As Ordered ONE; -LEVO100C PO; +LEVO100C2 PO; -PRED50TA PO; +PRED50TA57 PO; +PREG-35 PO; -PREG100CA PO; -RABE1TAB4 PO; +RABE1TAB5 PO
== END ==
LOC: M PLARAD 10:15
PROVIDERS: ATTEND Internal Medicine Medical Oncology
DX: C43.8 Malignant melanoma of overlapping sites of skin (principal)
CPT/HCPCS: 78816; A9552

== ENCOUNTER → 2025-09-03 | Outpatient (CLI) | payer MEDICARE, BC | LOC: M RAD 12:46 | PROVIDERS: ATTEND Internal Medicine Medical Oncology | DX: C43.9 Malignant melanoma of skin, unspecified (principal); K80.20 Calculus of gallbladder without cholecystitis without obstruction; N20.0 Calculus of kidney; J47.9 Bronchiectasis, uncomplicated; R91.8 Other nonspecific abnormal finding of lung field ==